=== PATIENT | female | born 1965 | race African-American/Black ===

== ENCOUNTER 2019-04-24 20:40 | Emergency (ER) | payer MEDICAID, OTHER ==
[~2019-04-24] VITALS: Ht 160 cm; Wt 105.0 kg
[2019-04-24] MEDS ORDERED: KETOROLAC 60MG/2ML VIAL IM ONE (21:30)
[2019-04-24 23:58] VITALS: BP 126/89
== END 2019-04-25 00:18 | disposition home or self-care (01) ==
LOC: ER 20:40
DX: M25.562 Pain in left knee (principal); I11.0 Hypertensive heart disease with heart failure; I50.9 Heart failure, unspecified
CPT/HCPCS: 73562; 96372; 99283; J1885